=== PATIENT | male | born 1940 | race Caucasian/White ===

== ENCOUNTER 2016-10-18 16:52 | Emergency (ER) | payer MEDICARE | END 2016-10-18 18:33 | disposition home or self-care (01) | DX: M25.562 Pain in left knee (principal); S89.92XA Unspecified injury of left lower leg, initial encounter; X50.1XXA Overexertion from prolonged static or awkward postures, initial encounter; Y93.89 Activity, other specified ==

== ENCOUNTER 2016-11-01 15:23 | Outpatient (CLI) | payer MEDICARE | END 2016-11-01 15:24 | disposition home or self-care (01) | DX: S83.522A Sprain of posterior cruciate ligament of left knee, initial encounter (principal); M25.462 Effusion, left knee ==

== ENCOUNTER 2018-07-25 13:54 | Emergency (ER) | payer MEDICARE ==
[2018-07-25 14:05] VITALS: BP 153/97
--- NOTE | 2018-07-25 15:47 | ED Physician Documentation ---
PD HPI Fall - Stated complaint Stated Complaint: GLF shoulder,rib and hip pain - Chief complaint Chief Complaint: Trauma Rahat - History obtained from History obtained from: Patient - History of Present Illness Mechanism of injury: Slipped (on some gravel while carrying something, and fell forward onto right elbow. Pain in right shoulder/upper arm. Also mild pain right ribs/chest, which worsened with coughing today. Able to move right arm/shoulder but hurts, mostly with flexion and rotation at elbow, but pain in mid upper arm.) Fall distance: Standing position Where injury occurred: Home Timing - onset: Yesterday Injury(ies) location: Right Upper Extremity. No: Head, Face, Neck Associated symptoms: No: AMS, Weakness, Paresthesias Review of Systems Musculoskeletal: denies: Neck pain, Back pain Neurologic: denies: Focal weakness, Numbness, Headache, Head injury PD PAST MEDICAL HISTORY - Past Medical History Cardiovascular: None Respiratory: None Neuro: None - Past Surgical History Past Surgical History: No - Present Medications Home Medications: Ambulatory Orders Medication Instructions Recorded Confirmed Aspirin [Aspir-Low] 10/18/16 - Allergies Allergies/Adverse Reactions: Allergies Allergy/AdvReac Type Severity Reaction Status Date / Time Penicillins Allergy Unknown Verified 07/25/18 14:05 - Social History Does the pt smoke?: No Smoking Status: Never smoker PD ED PE NORMAL - Vitals Vital signs reviewed: Yes - General General: Alert and oriented X 3, No acute distress, Well developed/nourished - HEENT HEENT: Atraumatic - Neck Neck: Supple, no meningeal sign, No bony TTP - Cardiac Cardiac: RRR, No murmur - Respiratory Respiratory: No respiratory distress, Clear bilaterally, Other (some tender lateral chestwall around ribs 5-7. No crepitance. ) - Abdomen Abdomen: Soft, Non tender - Back Back: No spinal TTP - Derm Derm: Normal color, Warm and dry - Extremities Extremities: Other (right shoudler without deformity. Elbow not tender. Arm motions hurt with flexion/supination at forearm/elbow. But pain is in mid upper arm. Biceps and triceps movements themselves not hurting and are strong. ) - Neuro Neuro: Alert and oriented X 3, No motor deficit, No sensory deficit Results - Vitals Vitals: Vital Signs - 24 hr 07/25/18 07/25/18 14:02 17:30 Temperature 36.5 C Heart Rate 70 75 Respiratory 20 15 Rate Blood Pressure 153/97 H O2 Saturation 98 96 Oxygen O2 Source Room air - Rads (name of study) right shoulder Radiology: Prelim report reviewed, EMP read contemporaneously (no fractures) right ribs Radiology: Prelim report reviewed (no fractures), EMP read contemporaneously PD MEDICAL DECISION MAKING - ED course Complexity details: considered differential (seems muscular and likely a strain of the brachioradialis muscle. ), d/w patient Departure - Departure Disposition: 01 Home, Self Care Clinical Impression: Accidental fall Qualifiers: Encounter type: initial encounter Qualified Code(s): W19.XXXA - Unspecified fall, initial encounter Muscle strain, upper arm Qualifiers: Encounter type: initial encounter Laterality: right Qualified Code(s): S46.911A - Strain of unspecified muscle, fascia and tendon at shoulder and upper arm level, right arm, initial encounter Chest wall contusion Qualifiers: Encounter type: initial encounter Laterality: right Qualified Code(s): S20.211A - Contusion of right front wall of thorax, initial encounter Condition: Stable Record reviewed to determine appropriate education?: Yes Instructions: ED Contusion Chest Wall, ED Strain Muscle Ext Follow-Up: Liset Calderón MD [Primary Care Provider] - Comments: There are no fractures seen on your x-rays. It does seem like a muscle strain of your right arm so have guarded use of it initially and progress use as able. Tylenol or ibuprofen or such if needed for pains. This may take a week or 2 to heal up if he did strain 1 of the muscles. Discharge Date/Time: 07/25/18 17:30
--- NOTE | 2018-07-25 17:20 | XRAY Report ---
Reason: fell yesterday, pain lateral ribs Procedure Date: 07/25/2018 Accession Number: [id number] / [id number] Procedure: XR - Ribs w/PA Chest RT CPT Code: FULL RESULT: EXAM: RIGHT RIB RADIOGRAPHY EXAM DATE: 07/25/2018 04:39 PM. CLINICAL HISTORY: Fell yesterday, pain lateral ribs. COMPARISON: None available. TECHNIQUE: 1 view of the chest and 2 views of the ribs. FINDINGS: Bones: A radiopaque marker was placed over the lateral right eighth rib. No displaced rib fracture visualized. The bones are osteopenic. Lungs: Lung volumes are low. No consolidation, pleural effusion, or pneumothorax. Mediastinum: Heart size is normal. Calcified plaques in the aortic arch. Other: None. IMPRESSION: Osteopenia. No acute displaced right rib fracture visualized. Low lung volumes. No evidence of focal pneumonia. RADIA
--- NOTE | 2018-07-25 17:22 | XRAY Report ---
Reason: fall Procedure Date: 07/25/2018 Accession Number: [id number] / [id number] Procedure: XR - Shoulder 3 View RT CPT Code: FULL RESULT: EXAM: RIGHT SHOULDER RADIOGRAPHY EXAM DATE: 07/25/2018 04:39 PM. CLINICAL HISTORY: Fall. COMPARISON: None available. TECHNIQUE: 4 views. FINDINGS: Bones: The bones are osteopenic. No acute fracture or dislocation visualized. Joints: The glenohumeral and acromioclavicular joints are intact. Soft tissues: Unremarkable. IMPRESSION: Osteopenia. No acute fracture or dislocation visualized. RAD[facility]
== END 2018-07-25 17:30 | disposition home or self-care (01) ==
LOC: ED 13:54
DX: S46.911A Strain of unspecified muscle, fascia and tendon at shoulder and upper arm level, right arm, initial encounter (principal); S20.211A Contusion of right front wall of thorax, initial encounter; W18.30XA Fall on same level, unspecified, initial encounter; Y92.009 Unspecified place in unspecified non-institutional (private) residence as the place of occurrence of the external cause; Z79.82 Long term (current) use of aspirin
CPT/HCPCS: 99283

== ENCOUNTER 2019-04-22 16:15 | Outpatient (CLI) | payer MEDICARE ==
--- NOTE | 2019-04-23 10:27 | MRI Report ---
Reason: STRAIN OF MUSC/TEND THE ROTATOR CUFF OF RIGHT SHOU Procedure Date: 04/22/2019 Accession Number: [id number] / [id number] Procedure: MRI - Shoulder RT W/O CPT Code: FULL RESULT: EXAM: RIGHT SHOULDER MRI WITHOUT CONTRAST EXAM DATE: 04/22/2019 05:23 PM. CLINICAL HISTORY: Fall. Pain. Restricted range of motion. ?Rotator cuff tear. COMPARISON: SHOULDER 3 VIEW RT 07/25/2018 4:39 PM. TECHNIQUE: Multiplanar, multisequence T1-weighted and fluid-sensitive sequences of the shoulder without contrast. Other: None. FINDINGS: Acromioclavicular Region: The acromion is type II. There is mild acromioclavicular joint osteoarthritis with fluid in the joint space. The subacromial bursa communicates with the glenohumeral joint space. Glenohumeral Region: The humeral head is posteriorly and superiorly subluxed. There is a large joint effusion. There is moderate erosion of the glenohumeral cartilage. The capsule appears thin superiorly and anteriorly consistent with the rotator cuff tears. Bone Marrow: No fracture, marrow edema or bone lesions. Labrum: There is fraying of the superior labrum consistent with the superior subluxation. Musculature/Rotator Cuff: There is complete rupture of supraspinatus, infraspinatus and subscapularis with severe atrophy. No edema or fatty atrophy. Biceps Tendon: There is severe tendinosis and high-grade partial thickness tearing of the proximal long head of biceps. Other: The subcutaneous tissues are unremarkable. IMPRESSION: 1. Chronic complete rupture of supraspinatus, infraspinous and subscapularis with severe atrophy. 2. Severe tendinosis and high-grade partial-thickness tearing of the proximal long head of biceps. 3. Mild glenohumeral osteoarthritis with superior subluxation of the humeral head. 4. Large joint effusion. RADIA
== END 2019-04-22 16:16 | disposition home or self-care (01) ==
LOC: DI 16:15
PROVIDERS: ATTEND Orthopaedic Surgery
DX: S46.011A Strain of muscle(s) and tendon(s) of the rotator cuff of right shoulder, initial encounter (principal); S46.111A Strain of muscle, fascia and tendon of long head of biceps, right arm, initial encounter; M19.011 Primary osteoarthritis, right shoulder; M25.411 Effusion, right shoulder

== ENCOUNTER 2023-10-27 16:31 | Outpatient (CLI) | payer MEDICARE ==
--- NOTE | 2023-10-27 20:50 | Ultrasound Report ---
PROCEDURE: Duplex Ext Veins Left INDICATIONS: EDEMA,CELLULITIS TECHNIQUE: Real-time imaging, as well as color and pulse Doppler interrogation, were performed of the lower extr emity deep veins from the inguinal ligament to the popliteal fossa. Attempted visualization of the ca lf veins was performed. COMPARISON: None. FINDINGS: The deep veins are normally compressible, and free of intraluminal thrombus. Color and pu lse Doppler demonstrate normal phasic intraluminal flow. There is normal augmentation response to di stal compression maneuver. There are 2 complex fluid collections posterior to the left shoulder measuring 2.0 x 1.2 x 0.9 cm and 2.5 x 0.7 x 2.5 cm. IMPRESSION: 1. No deep venous thrombosis of the visualized lower extremity. 2. 2 complex fluid collections posterior to left shoulder. Differential diagnoses are hematomas versu s abscesses. Consider MRI with and without contrast if clinically indicated. Reviewed by: Sim Stark MD on 10/27/2023 8:49 PM PST Approved by: Sim Stark MD on 10/27/2023 8:49 PM PST Station ID: [id number]
== END 2023-10-27 16:32 | disposition home or self-care (01) ==
LOC: DI 16:31
PROVIDERS: ATTEND Internal Medicine
DX: R60.9 Edema, unspecified (principal); L03.90 Cellulitis, unspecified; R93.6 Abnormal findings on diagnostic imaging of limbs; R93.89 Abnormal findings on diagnostic imaging of other specified body structures

== ENCOUNTER 2023-11-03 12:09 | Outpatient (CLI) | payer MEDICARE ==
--- NOTE | 2023-11-03 12:31 | XRAY Report ---
PROCEDURE: Knee 3V RT INDICATIONS: RIGHT KNEE PAIN TECHNIQUE: 3 views of the knee(s) were acquired. COMPARISON: None. FINDINGS: Bones: No fractures or dislocations. Diffusely decreased osseous position. Severe degenerative burgess ges of the knee with joint space narrowing, subchondral sclerosis and cystic changes. Sclerotic foci are seen within the distal femur and proximal tibia, representing benign chondroid lesion such as enc hondromas. Soft tissues: Small knee joint effusion. Few punctate hyperdense foci are seen within the lateral as pect of the right knee.. Atherosclerotic vascular calcifications. IMPRESSION: 1.No acute bony abnormality. Small knee joint effusion. 2.Few punctate hyperdense foci seen within the lateral aspect of the right knee soft tissues, foreign bodies are not excluded. 3.Severe degenerative changes of the knee. Reviewed by: Kip Salmon MD on 11/03/2023 12:30 PM PST Approved by: Kip Salmon MD on 11/03/2023 12:30 PM PST Station ID: [id number]
== END 2023-11-03 12:10 | disposition home or self-care (01) ==
LOC: DI 12:09
PROVIDERS: ATTEND Internal Medicine
DX: M17.11 Unilateral primary osteoarthritis, right knee (principal); M25.461 Effusion, right knee

== ENCOUNTER 2023-11-04 08:50 | Outpatient (CLI) | payer MEDICARE ==
--- NOTE | 2023-11-04 09:49 | CT Report ---
PROCEDURE: Head WO INDICATIONS: HEAD INJURY TECHNIQUE: Noncontrast 4.5 mm thick angled axial sections acquired from the foramen magnum to the vertex. For r adiation dose reduction, the following was used: automated exposure control, adjustment of mA and/or kV according to patient size. COMPARISON: None. FINDINGS: Image quality: Excellent. The ventricular system and cortical sulci demonstrate atrophy, consistent for patient's stated age. There are areas of hypodensity in the periventricular and subcortical white matter. There is no acut e intra or extra-axial fluid collection. No acute hemorrhage, mass lesion or midline shift. Brainst em is unremarkable. Globes are symmetrical. Sinuses are aerated. Osseous structures are intact. IMPRESSION: 1. No acute intracranial process. 2. Moderate atrophy and chronic microvascular ischemic changes. Reviewed by: Humaira Mixon MD on 11/04/2023 9:47 AM [facility] Approved by: Humaira Mixon MD on 11/04/2023 9:47 AM [facility] Station ID: [id number]
== END 2023-11-04 08:51 | disposition home or self-care (01) ==
LOC: DI 08:50
PROVIDERS: ATTEND Internal Medicine
DX: S09.8XXA Other specified injuries of head, initial encounter (principal); G31.89 Other specified degenerative diseases of nervous system; I67.82 Cerebral ischemia

== ENCOUNTER 2023-11-09 12:54 | Outpatient (CLI) | payer MEDICARE ==
[2023-11-09] MEDS ORDERED: GADOTERATE MEGLUMINE 10 MMOL/20 ML VIAL ONE (12:56)
[2023-11-09 14:02] LABS: CREATININE 1.1 mg/dL (0.6-1.3)
[2023-11-09] MEDS: GADOTERATE MEGLUMINE 10 MMOL/20 ML VIAL IVP ONE (16:21)
--- NOTE | 2023-11-10 10:46 | MRI Report ---
PROCEDURE: Shoulder LT W/WO INDICATIONS: SHOULDER PAIN CONTRAST: clariscan 14.8ml TECHNIQUE: Noncontrast oblique coronal T1 spin echo and T2 fast spin echo with fat saturation, oblique sagittal T1 spin echo and T2 fast spin echo with fat saturation, axial T1 spin echo and T2 fast spin echo with fat saturation through the shoulder. Post-contrast oblique coronal, oblique sagittal, and axial T1 spin echo with fat saturation through the shoulder. COMPARISON: None FINDINGS: Image quality: Degraded by metallic and motion artifact. Rotator cuff: Full thickness tears of the entire supraspinatus and infraspinatus tendons are present, with medial retraction and atrophy of the supraspinatus and infraspinatus tendons. There is moderate grade articular surface tearing of the upper subscapularis tendon at the humeral insertion site. Ter es minor is intact. Bones and bursae: No suspicious bone marrow enhancement. Metallic artifact projects over the superol ateral aspect of the humerus. Humeral head is subluxed superiorly. No bone marrow contusions or frac tures. Moderate acromioclavicular joint degeneration. The acromion demonstrates conventional anatomy , without an os acromiale. No pathologic subacromial/subdeltoid bursal fluid is present. Capsule and soft tissues: No suspicious soft tissue enhancement. There is irregular high T2 signal i ntensity traversing the posterior inferior labrum. The long head of the biceps tendon is not seen. Th e rotator interval appears normal, without fibrosis. The coracohumeral ligament is normal in thickne ss. IMPRESSION: 1. Full-thickness tearing and atrophy of the supraspinatus and infraspinatus tendons as above. 2. Partial-thickness tearing of the subscapularis tendon. 3. Acromioclavicular and glenohumeral joint osteoarthritis. 4. Glenoid labral tearing. 5. Full-thickness biceps tendon tear. Reviewed by: Jazmine Vicente MD on 11/10/2023 10:44 AM [facility] [place] Approved by: Jazmine Vicente MD on 11/10/2023 10:44 AM [facility] [place] Station ID: [id number]
== END 2023-11-09 12:55 | disposition home or self-care (01) ==
LOC: LAB 12:54
PROVIDERS: ATTEND Internal Medicine
DX: Z79.899 Other long term (current) drug therapy (principal); M75.122 Complete rotator cuff tear or rupture of left shoulder, not specified as traumatic; M19.012 Primary osteoarthritis, left shoulder; S43.492A Other sprain of left shoulder joint, initial encounter; S46.812A Strain of other muscles, fascia and tendons at shoulder and upper arm level, left arm, initial encounter
CPT/HCPCS: 36415; 73223; 82565; A9575